=== PATIENT | female | born 1940 | race Caucasian/White ===

== ENCOUNTER → 2017-06-03 | Emergency (ER) | payer OTHER ==
[~2017-06-03] VITALS: Ht 162.6 cm; Wt 61.2 kg
[~2017-06-03] MED LIST: CYMBALTA30 MG; ESTAZOLAM1 MG; LAMICTAL25 M1; PROZAC20 MG
== END | disposition home or self-care (01) ==
LOC: ER 17:37
DX: J45.998 Other asthma (principal); J11.1 Influenza due to unidentified influenza virus with other respiratory manifestations

== ENCOUNTER 2017-10-26 19:33 | Emergency (ER) | payer OTHER ==
[~2017-10-26] VITALS: Ht 160 cm; Wt 60.3 kg
[2017-10-26] MEDS ORDERED: LOSARTAN POTASS25 MG (19:51)
[2017-10-26] MEDS ORDERED: ZYPREXA5 MG (19:52)
[2017-10-26] MEDS ORDERED: PROZAC20 MG (19:52)
[2017-10-26] MEDS ORDERED: SYNTHROID100 MCG (19:52)
[2017-10-27] MEDS ORDERED: ZOFRAN ODT4 MG PO (02:35)
[2017-10-27] MEDS ORDERED: PEPCID40 MG PO (02:35)
== END 2017-10-27 02:49 | disposition home or self-care (01) ==
LOC: ER 19:33
DX: K29.60 Other gastritis without bleeding (principal)